=== PATIENT | male | born 1975 | race Asian ===

== ENCOUNTER 2021-07-18 09:30 | Day surgery (SDC) | payer OTHER ==
[2021-07-16 13:20] LABS: BASOPHILS % (AUTO) 0.5 % (0.0-5.0); EOSINOPHILS % (AUTO) 2.5 % (0.0-8.0); HEMATOCRIT 44.7 % (42-54); LYMPHOCYTES % (AUTO) 41.1 % (21.0-51.0); MEAN CORPUSCULAR HEMOGLOBIN 32.1 pg (27.0-33.0); MEAN CORPUSCULAR VOLUME 94.3 fL (79-99); MONOCYTES % (AUTO) 6.3 % (3.0-13.0); NEUTROPHILS % (AUTO) 49.4 % (40.0-77.0); PLATELET COUNT (AUTO) 292 K/uL (130-400); RED BLOOD CELL COUNT(AUTO) 4.74 MIL/uL (4.50-6.20); RED CELL DISTRIBUTION WIDTH 12.4 % (11.0-15.5); WHITE BLOOD COUNT (AUTO) 5.7 K/uL (4.8-10.8)
[2021-07-16 13:33] LABS: POTASSIUM 3.9 mmol/L (3.5-5.1)
[2021-07-17 11:06] VITALS: BP 135/78
[2021-07-18] VITALS (15 sets, daily range): BP systolic 123–141; BP diastolic 59–87
[~2021-07-18] VITALS: Ht 170.2 cm; Wt 65.8 kg
[~2021-07-18 09:30] MED LIST: ASCO100031 PO; CHOL100040 PO; MVIT PO; VITA1CAP85 PO; ZINC220T4 PO; ZONI100C19 PO; divalproex PO
[2021-07-18] MEDS ORDERED: LIDOCAINE PF 100MG/5ML (2%) SYRINGE 5ML ONE (11:56)
[2021-07-18] MEDS ORDERED: SUCCINYLCHOLINE CHLORIDE 20 MG/ML 10 ML VIAL ONE (11:56)
[2021-07-18] MEDS ORDERED: ROCURONIUM 10MG/1ML SYR 10 MG/ML ML ONE (11:57)
[2021-07-18] MEDS ORDERED: PROPOFOL 10 MG/ML 20ML VIAL IV ONE (11:57)
[2021-07-18] MEDS ORDERED: ROPIVACAINE 0.5% 5MG/ML 30ML IJ ONE (11:57)
[2021-07-18] MEDS ORDERED: MIDAZOLAM HCL 1 MG/ML 2ML VIAL ONE (11:58)
[2021-07-18] MEDS ORDERED: FENTANYL CITRATE PF 50 MCG/1 ML 2ML VIAL ONE (11:58)
[2021-07-18] MEDS: CEFAZOLIN SODIUM 1 GM VIAL IVP ONE ×2 (12:00→13:05)
[2021-07-18] MEDS ORDERED: LACTATED RINGERS 1000ML 1,000 ML IV ONE (12:02)
[2021-07-18] MEDS ORDERED: CEFAZOLIN SODIUM 1 GM VIAL ONE (12:02)
[2021-07-18] MEDS ORDERED: EPINEPHRINE 1 MG/ML 30ML VIAL IJ ONE (13:02)
[2021-07-18] MEDS ORDERED: PHENYLEPHRINE HCL 10 MG/ML 1ML VIAL IV ONE (14:33)
[2021-07-18] MEDS ORDERED: ONDANSETRON 4MG INJ ONE (15:18)
[2021-07-18] MEDS ORDERED: GLYCOPYRROLATE 1 MG/5 ML SYRINGE ONE (15:18)
[2021-07-18] MEDS ORDERED: NEOSTIGMINE 5MG/5ML SYR IV ONE (15:19)
[2021-07-18] MEDS ORDERED: DEXAMETHASONE SOD PHOSPHATE 10MG/ML 1ML VIAL ONE (15:20)
[2021-07-18] MEDS ORDERED: IBUP-2070 PO (15:58)
[2021-07-18] MEDS ORDERED: CEPH500B PO (15:58)
[2021-07-18] MEDS ORDERED: HYDR-4060 PO (15:58)
[2021-07-18] MEDS ORDERED: HYDROCODONE/ACETAMINOPHEN 5/325 MG TAB ONE (17:00)
== END 2021-07-18 17:35 | disposition home or self-care (01) ==
LOC: DAH 09:30
PROVIDERS: ATTEND Orthopaedic Surgery
DX: M75.01 Adhesive capsulitis of right shoulder (principal); Z20.822 Contact with and (suspected) exposure to COVID-19; S43.491A Other sprain of right shoulder joint, initial encounter; M75.21 Bicipital tendinitis, right shoulder; G47.30 Sleep apnea, unspecified; K21.9 Gastro-esophageal reflux disease without esophagitis; Z82.49 Family history of ischemic heart disease and other diseases of the circulatory system; Z79.899 Other long term (current) drug therapy; X58.XXXA Exposure to other specified factors, initial encounter; Y93.89 Activity, other specified; Y92.89 Other specified places as the place of occurrence of the external cause
CPT/HCPCS: 29807; 36415; 64415; 76942; 80048; 85025; 87635; A4213; A4215; A4221; A4222; A4223; A4565; A4600; A4649 ×4; A4663; A4930 ×2; A5120; A6204; C1713; C9803; G0168; J0171; J0330; J0690; J1100; J2001; J2250; J2370; J2405; J2704; J2710; J2795; J3010; J3490; J7120 ×2